=== PATIENT | male | born 1955 | race Caucasian/White ===

== ENCOUNTER 2018-04-11 10:55 | Emergency (ER) | payer OTHER ==
[~2018-04-11] VITALS: Ht 177.8 cm; Wt 61.2 kg
[2018-04-11] MEDS ORDERED: SODIUM CHLORIDE 0.9% 1000ML 1,000 ML IV STA (11:10)
[2018-04-11] MEDS ORDERED: MORPHINE SULFATE INJ 4 MG/ML INJ IV STA (11:10)
[2018-04-11] MEDS ORDERED: ONDANSETRON HCL INJ 2 MG/ML VIAL IV STA (11:10)
[2018-04-11] MEDS ORDERED: DIATRIZOATE MEGL/DIATRIZOA SOD 30 ML BTL PO ONE (11:19)
[2018-04-11 11:32] LABS: BASOPHILS % 0.1 % (0.0-1.0); EOSINOPHILS % 0.1 % (0.0-6.0); HEMATOCRIT 44.9 % (38.2-49.6); HEMOGLOBIN 15.5 g/dL (14.0-18.0); LYMPHOCYTES % 7.4 % (18.0-39.1); MEAN CORPUSCULAR HEMOGLOBIN 30.1 pg (28-32); MEAN CORPUSCULAR HGB CONC 34.5 g/dL (31-35); MEAN CORPUSCULAR VOLUME 87.2 fL (81-99); MONOCYTES # (AUTO) 0.5 (0.2-0.8); MONOCYTES % 3.6 % (4.4-11.3); NEUTROPHILS # (AUTO) 11.9 (2.1-6.9); NEUTROPHILS % 88.6 % (38.7-80.0); PLATELET COUNT 227 x10e3/uL (140-360); RED BLOOD COUNT 5.15 x10e6/uL (4.3-5.7)
[2018-04-11 11:44] LABS: INR 1.11; PROTHROMBIN TIME 13.5 seconds (11.9-14.5)
[2018-04-11 11:45] LABS: PARTIAL THROMBOPLASTIN TIME 29.7 seconds (23.8-35.5)
[2018-04-11 11:55] LABS: ALANINE AMINOTRANSFERASE 16 IU/L (0-55); ALBUMIN 4.8 g/dL (3.5-5.0); ALBUMIN/GLOBULIN RATIO 1.3 (0.8-2.0); ALKALINE PHOSPHATASE 43 IU/L (40-150); AMYLASE 39 U/L (25-125); ANION GAP 17.4 mmol/L (8-16); BLOOD UREA NITROGEN 10 mg/dL (7-26); BUN/CREATININE RATIO 10 (6-25); CALCIUM 10.5 mg/dL (8.4-10.2); CARBON DIOXIDE 24 mmol/L (22-29); CHLORIDE 101 mmol/L (98-107); CREATINE KINASE 184 IU/L (30-200); CREATININE, SERUM 1.03 mg/dL (0.72-1.25); EST GLOMERULAR FILTRATION RATE > 60 ML/MIN (60-); GLUCOSE 104 mg/dL (74-118); LIPASE 49 U/L (8-78); POTASSIUM 5.4 mmol/L (3.5-5.1); SODIUM 137 mmol/L (136-145)
[2018-04-11 13:05] LABS: BILIRUBIN,URINE NEGATIVE (NEGATIVE); CLARITY,URINE CLEAR (CLEAR); COLOR,URINE YELLOW (YELLOW); KETONES,URINE 1+ (NEGATIVE); LEUKOCYTE ESTERASE ,URINE TRACE (NEGATIVE); NITRITE,URINE NEGATIVE (NEGATIVE); PROTEIN,URINE DIPSTICK NEGATIVE (NEGATIVE); URINE UROBILINOGEN 0.2 mg/dL (0.2 - 1)
--- NOTE | 2018-04-11 13:17 | Diagnostic Imaging Report ---
EXAMINATION: CT of the abdomen and pelvis with contrast. TECHNIQUE: Spiral CT images of the abdomen and pelvis were performed from the lung bases to the lesser trochanters after the intravenous administration of 100 cc of Omnipaque 370 and the oral administration of dilute Gastrografin. Coronal and sagittal reformatted images were obtained. COMPARISON: None. CLINICAL HISTORY:Diffuse abdominal pain since one day ago. Left lower quadrant tenderness to palpation. DISCUSSION: ABDOMEN/PELVIS: LOWER THORAX:Minimal bilateral lower lobe dependent atelectasis. HEPATOBILIARY: Normal hepatic size and contour. 1.0 x 1.0 cm homogeneously enhancing lesion in hepatic segment V/ (series 2, image 24). Ill-defined 1.0 x 0.8 cm enhancing lesion in hepatic segment V adjacent to the gallbladder fossa (series 2, image 28). No intra or extrahepatic biliary ductal dilation. GALLBLADDER: No radio-opaque stones or sludge. No wall thickening. SPLEEN: No splenomegaly. PANCREAS: Focal prominence of the pancreatic duct at the neck, which measures approximately 6 mm, without evidence of obstructing lesion or mass. The pancreatic duct is normal in caliber at the head, body and tail. ADRENALS: No adrenal nodules. KIDNEYS/URETERS: No hydronephrosis, stones, or solid mass lesions. PELVIC ORGANS/BLADDER: Bladder is moderately distended, without focal lesions are wall thickening. Prostate is enlarged and indents the inferior aspect of the bladder, measuring approximately 5.8 x 5.0 x 4.9 cm. PERITONEUM/RETROPERITONEUM: No free air or fluid. LYMPH NODES: No intra-abdominal, retroperitoneal, pelvic or inguinal lymphadenopathy. VESSELS: The celiac trunk,superior and inferior mesenteric and bilateral renal arteries are patent The portal, superior mesenteric and splenic veins are patent. Atherosclerotic calcification of the distal abdominal aorta and iliac vessels. GI TRACT: No bowel dilation or evidence of obstruction. No definite pericolonic inflammatory changes. No significant diverticulosis or evidence of diverticulitis. Moderate retained stool in the ascending colon. BONES AND SOFT TISSUE: No aggressive lytic lesions. Degenerative disc changes in the lower thoracic and lumbosacral spine predominantly at L5-S1 soft tissues are grossly unremarkable.. IMPRESSION: 1. No acute abdominopelvic abnormalities. Specifically, no bowel dilation or evidence of obstruction. No acute abnormalities in the left lower quadrant to explain the patient's pain. 2. Indeterminate homogeneously enhancing lesions in hepatic segment and V. These may represent small hemangiomas. Recommend contrast enhanced MRI abdomen with liver mass protocol for further evaluation, on a nonemergent basis. 3. Focal prominence of the pancreatic duct at the neck, of undetermined clinical significance. The rest of the pancreatic duct is normal in caliber at the head, body and tail. No focal mass or obstructing lesion is identified. This can also be reassessed with above MRI. 4.Prostatomegaly, which may be due to BPH. Signed by: Dr. Tao Bhatia M.D. on 04/11/2018 1:14 PM
[2018-04-11 13:19] LABS: BACTERIA,URINE FEW /HPF; EPITHELIAL CELLS,URINE RARE /LPF
[2018-04-11] MEDS ORDERED: SODIUM CHLORIDE 0.9% 50ML 50 ML ONE (13:26)
[2018-04-11] MEDS ORDERED: IOPAMIDOL 370 MG/ML 200 ML INFUS..BTL INJ ONE (13:27)
== END 2018-04-11 16:33 | disposition home or self-care (01) ==
LOC: ER 10:55
DX: R10.84 Generalized abdominal pain (principal); R11.0 Nausea; N39.0 Urinary tract infection, site not specified
CPT/HCPCS: 36415; 74177; 80053; 81001; 82150; 82550; 82553; 83690; 84484; 85025; 85610; 85730; 87086; 93005; 99284; J2270; J2405; J7030; Q9967

== ENCOUNTER → 2018-05-01 | Outpatient (CLI) | payer OTHER ==
[~2018-05-01] MED LIST: GADOBENATE DIMEGLUMINE 1 ML IV ONE
--- NOTE | 2018-05-03 15:04 | Diagnostic Imaging Report ---
EXAMINATION: MRI Abdomen with and without contrast. TECHNIQUE: Axial T1 nonfat sat in and out of phase, axial T2 fat sat, coronal T2 nonfat sat, axial DWI and ADC MR images of the abdomen were obtained before and after the administration of 10 cc of gadolinium. Axial T1 fat sat GRE dynamic images in precontrast, arterial, venous and delayed phases were obtained. CLINICAL HISTORY:Abdominal pain, ill-defined liver lesions on CT COMPARISON: CT abdomen and pelvis 04/11/2018 FINDINGS: LOWER THORAX: Unremarkable. LIVER: The hepatic contour is normal. No hepatic signal abnormality. No focal hepatic lesions. Specifically, there are no areas of increased T2 signal, postcontrast enhancement or diffusion restriction, which correspond to the previously described lesions on prior CT. 5 mm T2 hyperintense, T1 hypointense nonenhancing simple cyst in hepatic segment VII (series 6, image 7). No other focal lesions. BILIARY: No ductal dilatation or filling defect. The gallbladder has a normal appearance. PANCREAS: Normal pancreatic parenchymal enhancement. No focal lesions. Previously visualized focal prominence of the pancreatic duct in the neck is not seen in the current exam (currently measures approximately 3 mm in series 10, image 70). No ductal dilation. SPLEEN: No splenomegaly. ADRENALS: No nodules. KIDNEYS: No hydronephrosis or solid enhancing mass in the imaged portion of the kidneys. PERITONEUM / RETROPERITONEUM: No upper abdominal free fluid. GI TRACT: Visualized bowel shows no dilation or obstruction. LYMPH NODES: No upper abdominal lymphadenopathy. VESSELS: The celiac trunk, superior and inferior mesenteric and bilateral renal arteries are patent. The portal, superior mesenteric and splenic veins are patent. No collateral circulation. BONES AND SOFT TISSUES: No abnormal bone marrow signal. No soft tissue abnormalities. IMPRESSION: 1. No focal MRI areas of increased T2 signal, postcontrast enhancement or diffusion restriction to correspond to the previously described lesions on prior CT. These likely represented transient perfusion anomalies. 2. Previously visualized focal prominence of the pancreatic duct in the neck is not seen in the current exam. No pancreatic ductal dilation or focal lesion are noted. Signed by: Dr. Tao Bhatia M.D. on 05/03/2018 3:01 PM
== END ==
LOC: MRI 14:23
PROVIDERS: ATTEND Internal Medicine Gastroenterology
DX: R10.9 Unspecified abdominal pain (principal); R16.0 Hepatomegaly, not elsewhere classified
CPT/HCPCS: 74183

== ENCOUNTER → 2018-05-03 | Day surgery (SDC) | payer OTHER ==
[~2018-05-03] MED LIST changes: +FENTANYL CITRATE/PF 100MCG/2 ML INJ ONE; -GADOBENATE DIMEGLUMINE 1 ML IV ONE; +LIDOCAINE HCL 2% LOCAL INJ 5 ML SDV VIAL INJ ONE; +MIDAZOLAM HCL 2 MG/2 ML VIAL ONE; +PROPOFOL IV EMULSION 10 MG/ML 50 ML VIAL ONE
[2018-05-03 14:15] VITALS: BP 128/84
--- NOTE | 2018-05-03 15:40 | Operative Report ---
DATE OF PROCEDURE: May 03, 2018 REFERRING PHYSICIAN: Dr. Terence Fernandez. PROCEDURE PERFORMED: Colonoscopy and polypectomy with biopsies. INDICATIONS FOR COLONOSCOPY: Colorectal cancer screening. MEDICATION: Patient was done under MAC. Please see anesthesiologist's note. PROCEDURE: With patient in the left lateral decubitus position, flexible fiberoptic Olympus colonoscope was inserted into the rectum with ease and advanced all the way to the cecum. Mucosa overlying the cecum appeared to be within normal limits. The ileocecal valve was intubated and scope was advanced into the terminal ileum. The mucosa was ulcerated and biopsies were obtained. The scope was then withdrawn back into the colon. It was then withdrawn slowly. Mucosa overlying the ascending and transverse as well as the descending appeared to be within normal limits. Some low-grade inflammatory changes were noted in the sigmoid colon and biopsies were obtained. Some minimal diverticulosis was also noted in the sigmoid colon. Two polyps was snared. Two polyps were hot biopsied from the sigmoid colon. One polyp was hot biopsied from the rectum. The scope was then retroflexed into the distal rectum and moderate-sized internal hemorrhoids were noted, none of which was actively bleeding. The scope was then straightened out. It was subsequently withdrawn. Patient tolerated the procedure well. IMPRESSION: 1. Ulcerated terminal ileum, biopsied. 2. Low-grade proctosigmoiditis, biopsied. 3. Diverticulosis. 4. Sigmoid colon polyps times 4, two snared and 2 hot biopsied. 5. Rectal polyp times 1 hot biopsied. 6. Internal hemorrhoids, none actively bleeding. PLAN: Follow up histology. Check inflammatory bowel disease pattern panel. CRP and sed rate. Patient will need a small bowel series to examine the rest of the small bowel. Followup colonoscopy in 3 years. Job#: [id number] cc:TERENCE FERNANDEZ MD
== END | disposition home or self-care (01) ==
LOC: OR 09:49
PROVIDERS: ATTEND Internal Medicine Gastroenterology
DX: Z12.11 Encounter for screening for malignant neoplasm of colon (principal); K63.5 Polyp of colon; K62.1 Rectal polyp; K52.89 Other specified noninfective gastroenteritis and colitis; K57.30 Diverticulosis of large intestine without perforation or abscess without bleeding; K64.8 Other hemorrhoids; R93.5 Abnormal findings on diagnostic imaging of other abdominal regions, including retroperitoneum; K76.89 Other specified diseases of liver; Z86.19 Personal history of other infectious and parasitic diseases
CPT/HCPCS: 36415; 45384; 45385; 85651; 86140; 86256; 86671; 93005; J2001; J2250; 45378; 45380

== ENCOUNTER → 2025-02-11 | Day surgery (SDC) | payer MEDICARE, OTHER ==
[2025-02-10 14:04] LABS: BASOPHILS # (AUTO) 0.1 (0.0-0.1); BASOPHILS % 0.9 % (0.0-1.0); EOSINOPHILS # (AUTO) 0.3 (0.0-0.4); HEMOGLOBIN 13.2 g/dL (14.0-18.0); LYMPHOCYTES # (AUTO) 1.4 (1.0-3.2); LYMPHOCYTES % 21.8 % (18.0-39.1); MEAN CORPUSCULAR HEMOGLOBIN 30.3 pg (28-32); MONOCYTES # (AUTO) 0.8 (0.2-0.8); MONOCYTES % 12.2 % (4.4-11.3); NEUTROPHILS % 60.9 % (38.7-80.0); PLATELET COUNT 207 x10e3/uL (140-360); RED BLOOD COUNT 4.35 x10e6/uL (4.3-5.7); RED CELL DISTRIBUTION WIDTH 13.2 % (11.7-14.4); WHITE BLOOD COUNT 6.55 x10e3/uL (4.8-10.8)
[2025-02-10 14:44] LABS: ANION GAP 16.2 mmol/L (8-16); CALCIUM 9.4 mg/dL (8.4-10.2); CREATININE, SERUM 1.53 mg/dL (0.72-1.25); POTASSIUM 4.2 mmol/L (3.5-5.1)
[~2025-02-11] MED LIST changes: +ACETAMINOPHEN 1000 MG/100 ML 100 ML IV ONE; +DEXAMETHASONE SOD PHOS INJ 4 MG/ML SDV ONE; +EPHEDRINE SULFATE INJ 50 MG/ML VIAL ONE; +FLOMAX0.4 MG PO; +LASIX20 MG PO; +LEVOFLOXACIN250 MG PO; -MIDAZOLAM HCL 2 MG/2 ML VIAL ONE; +ONDANSETRON HCL INJ 2MG/ML 2ML 2 MG/ML VIAL ONE; +PROPOFOL IV EMULSION 10 MG/ML 20 ML VIAL ONE; -PROPOFOL IV EMULSION 10 MG/ML 50 ML VIAL ONE; +ROSUVASTATIN CA10 MG PO; +SEVOFLURANE INHAL SOLN 250 ML PEN BTL ONE
[2025-02-11] MEDS: SODIUM CHLORIDE 0.9% 1000ML 1,000 ML ONE (10:13)
[2025-02-11] MEDS: GENTAMICIN 80MG/NS 100 ML 200 ML IV ONE (10:14)
[2025-02-11] MEDS: PIPERACILLIN/TAZOBACTAM 3.375 GM VIAL ONE (10:14)
[2025-02-11] MEDS: PHENAZOPYRIDINE HCL 100 MG TAB ONE (12:38)
[2025-02-11 15:10] VITALS: BP 137/82; PULSE 67; RESP 16; O2SAT 100
== END | disposition home or self-care (01) ==
LOC: OR 09:22
PROVIDERS: ATTEND Urology
DX: R97.20 Elevated prostate specific antigen [PSA] (principal); N40.3 Nodular prostate with lower urinary tract symptoms; N13.8 Other obstructive and reflux uropathy; R39.14 Feeling of incomplete bladder emptying; R39.16 Straining to void; R39.12 Poor urinary stream; N35.812 Other bulbous urethral stricture, male; R31.29 Other microscopic hematuria; N32.89 Other specified disorders of bladder; I10 Essential (primary) hypertension; E78.00 Pure hypercholesterolemia, unspecified; Z01.810 Encounter for preprocedural cardiovascular examination; Z01.812 Encounter for preprocedural laboratory examination; Z01.818 Encounter for other preprocedural examination; Z79.899 Other long term (current) drug therapy; Z86.19 Personal history of other infectious and parasitic diseases; Z87.891 Personal history of nicotine dependence
CPT/HCPCS: 36415; 52281; 55700; 71046; 74420; 76872; 76998; 80048; 85025; 88305; 93005; C1758; J0131; J1100; J1580; J2003; J2405; J2543; J2704; J3010; J7030

== ENCOUNTER 2025-02-12 11:46 | Emergency (ER) | payer MEDICARE ==
[~2025-02-12] VITALS: Ht 177.8 cm; Wt 63.0 kg
[~2025-02-12 11:46] MED LIST changes: -ACETAMINOPHEN 1000 MG/100 ML 100 ML IV ONE; -DEXAMETHASONE SOD PHOS INJ 4 MG/ML SDV ONE; -EPHEDRINE SULFATE INJ 50 MG/ML VIAL ONE; -FENTANYL CITRATE/PF 100MCG/2 ML INJ ONE; -LIDOCAINE HCL 2% LOCAL INJ 5 ML SDV VIAL INJ ONE; -ONDANSETRON HCL INJ 2MG/ML 2ML 2 MG/ML VIAL ONE; -PROPOFOL IV EMULSION 10 MG/ML 20 ML VIAL ONE; -SEVOFLURANE INHAL SOLN 250 ML PEN BTL ONE
[2025-02-12 11:53] VITALS: TEMP 97.8
[2025-02-12 13:10] LABS: CLARITY,URINE CLOUDY (CLEAR); COLOR,URINE ORANGE (YELLOW); PH,URINE 5.5 (5 - 7)
[2025-02-12 13:11] LABS: BILIRUBIN,URINE NEGATIVE (NEGATIVE); GLUCOSE, URINE 1+ (NEGATIVE); KETONES,URINE NEGATIVE (NEGATIVE); LEUKOCYTE ESTERASE ,URINE NEGATIVE (NEGATIVE); NITRITE,URINE POSITIVE (NEGATIVE); PROTEIN,URINE DIPSTICK TRACE (NEGATIVE); URINE UROBILINOGEN 0.2 mg/dL (0.2 - 1)
[2025-02-12 13:55] LABS: BACTERIA,URINE FEW /HPF; RBC,URINE 21-50 /HPF (0-5)
[2025-02-12 14:27] VITALS: PULSE 75; RESP 11; O2SAT 100
== END 2025-02-12 15:38 | disposition home or self-care (01) ==
LOC: ER 12:34
DX: R33.9 Retention of urine, unspecified (principal); Z86.19 Personal history of other infectious and parasitic diseases; Z85.828 Personal history of other malignant neoplasm of skin
CPT/HCPCS: 51700; 81001; 99283

== ENCOUNTER → 2025-04-29 | Outpatient (REF) | payer MEDICARE ==
[~2025-04-29] MED LIST changes: +FUROSEMIDE INJ 10 MG/ML 4 ML VIAL ONE
== END ==
LOC: NM 11:32
PROVIDERS: ATTEND Urology
DX: N13.30 Unspecified hydronephrosis (principal); T19.1XXA Foreign body in bladder, initial encounter
CPT/HCPCS: 78708; A9562; J1938